=== PATIENT | male | born 1980 | race Caucasian/White ===

== ENCOUNTER 2017-06-22 15:44 | Emergency (ER) | payer OTHER ==
[~2017-06-22] VITALS: Ht 167.6 cm; Wt 81.7 kg
[2017-06-22] MEDS ORDERED: PROTONIX40 M1 PO (15:58)
[2017-06-22] MEDS ORDERED: CHANTIX1 MG PO (15:59)
[2017-06-22 16:12] LABS: URINE BILIRUBIN NEGATIVE (Negative); URINE BLOOD NEGATIVE (Negative); URINE CLARITY CLEAR; URINE COLOR YELLOW; URINE GLUCOSE-RANDOM NEGATIVE (Negative); URINE KETONES NEGATIVE (Negative); URINE LEUKOCYTES-REFLEX NEGATIVE (Negative); URINE NITRITE-REFLEX NEGATIVE (Negative); URINE PROTEIN NEGATIVE (Negative); URINE UROBILINOGEN 0.2 E.U./dl (0.2-1.0)
[2017-06-22 16:16] LABS: ABSOLUTE BASOPHILS 0.1 thou/uL (0.0-0.2); ABSOLUTE EOSINOPHILS 0.2 thou/uL (0.0-0.7); ABSOLUTE MONOCYTES 0.7 thou/uL (0.0-1.2); ABSOLUTE NEUTROPHILS 5.6 thou/uL (1.6-8.1); BASOPHILS 0.6 %; EOSINOPHILS 2.1 %; HEMATOCRIT 40.4 % (42.0-52.0); HEMOGLOBIN 13.5 gm/dL (14.0-18.0); LYMPHOCYTES 31.4 %; MCH 28.5 pg (26.0-34.0); MCHC 33.4 g/dL (28.0-37.0); MCV 85.3 fL (80.0-100.0); MONOCYTES 7.7 %; MPV 7.9 fl. (7.2-11.1); NUCLEATED RBCS 0 /100WBC; PLATELET COUNT* 348 thou/uL (150-400); POLYS 58.2 %; RBC 4.74 mil/uL (4.50-6.00); RDW-CV 14.6 % (10.5-14.5); WBC 9.5 thou/uL (4.0-11.0)
[2017-06-22 16:23] LABS: CALCIUM 9.1 mg/dL (8.5-10.1); CREATININE 0.6 mg/dL (0.6-1.3)
[2017-06-22 16:24] LABS: POTASSIUM 4.2 mmol/L (3.5-5.1)
[2017-06-22 16:27] LABS: ALBUMIN 3.7 g/dL (3.4-5.0); TOTAL BILIRUBIN 0.3 mg/dL (<0.1-1.0); TOTAL PROTEIN 8.1 g/dL (6.4-8.2)
[2017-06-22] MEDS ORDERED: NORCO 5-325 TA1 EACH PO (18:27)
[2017-06-22 19:23] VITALS: BP 122/83
== END 2017-06-22 19:25 | disposition home or self-care (01) ==
LOC: M.ERS 15:44
PROVIDERS: Nurse Practitioner Family
DX: R10.31 Right lower quadrant pain (principal); K62.5 Hemorrhage of anus and rectum; K21.9 Gastro-esophageal reflux disease without esophagitis; F17.210 Nicotine dependence, cigarettes, uncomplicated; Z90.49 Acquired absence of other specified parts of digestive tract; Z98.890 Other specified postprocedural states; Z91.013 Allergy to seafood

== ENCOUNTER 2017-06-26 06:15 | Emergency (ER) | payer OTHER ==
[~2017-06-26] VITALS: Ht 167.6 cm; Wt 81.7 kg
[~2017-06-26 06:15] MED LIST: CHANTIX1 MG PO; NORCO 5-325 TA1 EACH PO; PROTONIX40 M1 PO
[2017-06-26 06:45] LABS: ABSOLUTE EOSINOPHILS 0.2 thou/uL (0.0-0.7); ABSOLUTE LYMPHOCYTES 2.3 thou/uL (0.8-5.3); ABSOLUTE MONOCYTES 0.5 thou/uL (0.0-1.2); ABSOLUTE NEUTROPHILS 4.9 thou/uL (1.6-8.1); BASOPHILS 0.6 %; EOSINOPHILS 2.8 %; HEMATOCRIT 39.9 % (42.0-52.0); HEMOGLOBIN 13.4 gm/dL (14.0-18.0); LYMPHOCYTES 28.8 %; MCH 28.6 pg (26.0-34.0); MCHC 33.5 g/dL (28.0-37.0); MCV 85.1 fL (80.0-100.0); MONOCYTES 6.4 %; MPV 7.8 fl. (7.2-11.1); NUCLEATED RBCS 0 /100WBC; PLATELET COUNT* 353 thou/uL (150-400); POLYS 61.4 %; RBC 4.69 mil/uL (4.50-6.00); RDW-CV 14.3 % (10.5-14.5)
[2017-06-26 06:47] LABS: URINE BILIRUBIN NEGATIVE (Negative); URINE BLOOD NEGATIVE (Negative); URINE CLARITY CLEAR; URINE COLOR YELLOW; URINE GLUCOSE-RANDOM NEGATIVE (Negative); URINE KETONES NEGATIVE (Negative); URINE LEUKOCYTES-REFLEX NEGATIVE (Negative); URINE NITRITE-REFLEX NEGATIVE (Negative); URINE PROTEIN NEGATIVE (Negative); URINE UROBILINOGEN 0.2 E.U./dl (0.2-1.0)
[2017-06-26 06:50] LABS: AMP/METHAMP Negative (Negative); BARBITURATES Negative (Negative); BENZODIAZEPINES Negative (Negative); COCAINE Negative (Negative); METHADONE Negative (Negative); OPIATES POSITIVE (Negative); PCP Negative (Negative); THC POSITIVE (Negative)
[2017-06-26 06:52] LABS: CALCIUM 8.9 mg/dL (8.5-10.1); CREATININE 0.9 mg/dL (0.6-1.3); POTASSIUM 3.1 mmol/L (3.5-5.1)
[2017-06-26 06:57] LABS: ALBUMIN 3.6 g/dL (3.4-5.0); TOTAL BILIRUBIN 0.2 mg/dL (<0.1-1.0); TOTAL PROTEIN 7.8 g/dL (6.4-8.2)
[2017-06-26] MEDS ORDERED: HYDROCODONE-AP1 EAC6 PO (07:07)
[2017-06-26 07:39] VITALS: BP 132/90
== END 2017-06-26 07:41 | disposition home or self-care (01) ==
LOC: M.ERS 06:15
PROVIDERS: Emergency Medicine
DX: K59.00 Constipation, unspecified (principal); K21.9 Gastro-esophageal reflux disease without esophagitis; Z98.890 Other specified postprocedural states; Z91.013 Allergy to seafood

== ENCOUNTER 2017-07-30 17:40 | Emergency (ER) | payer OTHER ==
[~2017-07-30] VITALS: Ht 167.6 cm; Wt 83.5 kg
[~2017-07-30 17:40] MED LIST changes: +HYDROCODONE-AP1 EAC6 PO
[2017-07-30] MEDS ORDERED: LEXAPRO20 MG PO (17:52)
[2017-07-30 18:20] LABS: ABSOLUTE BASOPHILS 0.1 thou/uL (0.0-0.2); ABSOLUTE EOSINOPHILS 0.2 thou/uL (0.0-0.7); ABSOLUTE LYMPHOCYTES 2.9 thou/uL (0.8-5.3); ABSOLUTE MONOCYTES 0.7 thou/uL (0.0-1.2); ABSOLUTE NEUTROPHILS 6.6 thou/uL (1.6-8.1); BASOPHILS 0.8 %; EOSINOPHILS 1.6 %; HEMATOCRIT 41.6 % (42.0-52.0); HEMOGLOBIN 13.9 gm/dL (14.0-18.0); LYMPHOCYTES 27.9 %; MCH 28.2 pg (26.0-34.0); MCHC 33.4 g/dL (28.0-37.0); MCV 84.5 fL (80.0-100.0); MONOCYTES 6.8 %; MPV 7.7 fl. (7.2-11.1); NUCLEATED RBCS 0 /100WBC; PLATELET COUNT* 400 thou/uL (150-400); POLYS 62.9 %; RBC 4.92 mil/uL (4.50-6.00); RDW-CV 14.2 % (10.5-14.5); WBC 10.5 thou/uL (4.0-11.0)
[2017-07-30 18:23] LABS: URINE BILIRUBIN NEGATIVE (Negative); URINE BLOOD NEGATIVE (Negative); URINE CLARITY CLEAR; URINE COLOR YELLOW; URINE GLUCOSE-RANDOM NEGATIVE (Negative); URINE KETONES NEGATIVE (Negative); URINE LEUKOCYTES-REFLEX NEGATIVE (Negative); URINE NITRITE-REFLEX NEGATIVE (Negative); URINE PROTEIN NEGATIVE (Negative); URINE UROBILINOGEN 0.2 E.U./dl (0.2-1.0)
[2017-07-30 18:29] LABS: ANION GAP 8 mmol/L (7-16); BUN 11 mg/dL (7-18); CALCIUM 8.8 mg/dL (8.5-10.1); CHLORIDE 102 mmol/L (98-107); CO2 27 mmol/L (21-32); CREATININE 0.7 mg/dL (0.6-1.3); GLUCOSE 86 mg/dL (70-99); POTASSIUM 3.8 mmol/L (3.5-5.1); SODIUM 137 mmol/L (136-145)
[2017-07-30 18:36] LABS: ALKALINE PHOSPHATASE 94 U/L (46-116); LIPASE 100 U/L (73-393); SGOT 27 U/L (15-37); SGPT 43 U/L (30-65); TOTAL BILIRUBIN 0.3 mg/dL (<0.1-1.0); TOTAL PROTEIN 8.7 g/dL (6.4-8.2); TROPONIN-I LEVEL <0.06 ng/mL (<0.06)
[2017-07-30] MEDS ORDERED: MEDROLDOSEPACK PO (22:08)
[2017-07-30] MEDS ORDERED: NORCO 5-325 TA1 EACH PO (22:08)
[2017-07-30] MEDS ORDERED: PHENERGAN 25 MG25 M1 PO (22:08)
[2017-07-30 22:17] VITALS: BP 123/84
--- NOTE | 2017-07-31 17:16 | EKG ---
[place] [address] ELECTROCARDIOGRAM REPORT Name: RHINA HERNANDEZ Room: [facility]#: [id number] Admission: 07/30/17 Attend Phys: Discharge: 07/30/17 Date of : 78 Report #: [id number] THIS REPORT FOR: //name// [facility] ED Test Date: 2017-07-30 Test Time: 18:23:23 Pat Name: RHINA BRENNANHERNANDEZ Department: Room: Gender: Trailer Driver: Flori SHERWOOD : 1980 Requested By: Willard Stone Order Number: [id number] MD: Bogdan Whyte Measurements Intervals [place] Rate: 75 P: 39 MI: 121 QRS: 11 QRSD: 97 T: 21 QT: 375 QTc: 419 Interpretive Statements Sinus rhythm No previous ECG available for comparison Electronically Signed On 07-31-2017 17:15:49 [employer] by Bogdan Whyte [email or web address] <ELECTRONICALLY SIGNED> By: Bogdan Whyte MD, [facility] 07/31/17 1715 1823 1823 Bogdan Whyte MD, FACC /EPI
== END 2017-07-30 22:19 | disposition home or self-care (01) ==
LOC: M.ERS 17:40
PROVIDERS: Emergency Medicine Emergency Medical Services
DX: R10.84 Generalized abdominal pain (principal); K21.9 Gastro-esophageal reflux disease without esophagitis; F32.9 Major depressive disorder, single episode, unspecified; K51.90 Ulcerative colitis, unspecified, without complications; Z90.49 Acquired absence of other specified parts of digestive tract; Z91.013 Allergy to seafood

== ENCOUNTER 2017-08-01 18:42 | Emergency (ER) | payer OTHER ==
[~2017-08-01] VITALS: Ht 167.6 cm; Wt 81.7 kg
[~2017-08-01 18:42] MED LIST changes: +LEXAPRO20 MG PO; +MEDROLDOSEPACK PO; +PHENERGAN 25 MG25 M1 PO
[2017-08-01 19:13] LABS: ABSOLUTE BASOPHILS 0.1 thou/uL (0.0-0.2); ABSOLUTE EOSINOPHILS 0.1 thou/uL (0.0-0.7); ABSOLUTE LYMPHOCYTES 3.2 thou/uL (0.8-5.3); ABSOLUTE MONOCYTES 0.5 thou/uL (0.0-1.2); ABSOLUTE NEUTROPHILS 7.6 thou/uL (1.6-8.1); BASOPHILS 0.8 %; EOSINOPHILS 1.1 %; HEMATOCRIT 39.1 % (42.0-52.0); HEMOGLOBIN 13.2 gm/dL (14.0-18.0); MCH 28.9 pg (26.0-34.0); MCHC 33.6 g/dL (28.0-37.0); MCV 85.9 fL (80.0-100.0); MONOCYTES 4.4 %; MPV 7.4 fl. (7.2-11.1); NUCLEATED RBCS 0 /100WBC; PLATELET COUNT* 369 thou/uL (150-400); POLYS 65.7 %; RBC 4.56 mil/uL (4.50-6.00); RDW-CV 14.3 % (10.5-14.5); WBC 11.6 thou/uL (4.0-11.0)
[2017-08-01 19:21] LABS: CALCIUM 8.3 mg/dL (8.5-10.1); CREATININE 0.9 mg/dL (0.6-1.3); POTASSIUM 3.3 mmol/L (3.5-5.1)
[2017-08-01 19:23] LABS: URINE BILIRUBIN NEGATIVE (Negative); URINE BLOOD 3+ (Negative); URINE CLARITY CLEAR; URINE COLOR YELLOW; URINE GLUCOSE-RANDOM NEGATIVE (Negative); URINE KETONES NEGATIVE (Negative); URINE LEUKOCYTES-REFLEX NEGATIVE (Negative); URINE NITRITE-REFLEX NEGATIVE (Negative); URINE PROTEIN NEGATIVE (Negative); URINE UROBILINOGEN 0.2 E.U./dl (0.2-1.0)
[2017-08-01 19:25] LABS: ALBUMIN 3.8 g/dL (3.4-5.0); TOTAL BILIRUBIN 0.2 mg/dL (<0.1-1.0); TOTAL PROTEIN 7.7 g/dL (6.4-8.2)
[2017-08-01 19:37] LABS: BACTERIA-REFLEX None Seen /HPF (None Seen); CASTS None Seen /LPF (None Seen); CRYSTALS None Seen /LPF (None Seen); MUCUS 0-3 Light strn/LPF (None Seen); SQUAMOUS 4-10 Moderate /LPF (0-3); URINE RBC >20 Many /HPF (0-2); URINE WBC-REFLEX None Seen /HPF (0-5)
[2017-08-01 21:06] VITALS: BP 145/73
== END 2017-08-01 21:08 | disposition home or self-care (01) ==
LOC: M.ERS 18:42
PROVIDERS: Nurse Practitioner Family
DX: R10.84 Generalized abdominal pain (principal); F32.9 Major depressive disorder, single episode, unspecified; K21.9 Gastro-esophageal reflux disease without esophagitis; Z91.013 Allergy to seafood; Z88.6 Allergy status to analgesic agent; Z90.49 Acquired absence of other specified parts of digestive tract; Z98.890 Other specified postprocedural states

== ENCOUNTER 2017-08-04 10:38 | Emergency (ER) | payer OTHER ==
[~2017-08-04] VITALS: Ht 167.6 cm; Wt 81.7 kg
[2017-08-04 10:52] LABS: URINE BILIRUBIN NEGATIVE (Negative); URINE BLOOD NEGATIVE (Negative); URINE CLARITY CLEAR; URINE COLOR YELLOW; URINE GLUCOSE-RANDOM NEGATIVE (Negative); URINE KETONES NEGATIVE (Negative); URINE LEUKOCYTES-REFLEX NEGATIVE (Negative); URINE NITRITE-REFLEX NEGATIVE (Negative); URINE PROTEIN NEGATIVE (Negative); URINE UROBILINOGEN 0.2 E.U./dl (0.2-1.0)
[2017-08-04 11:07] LABS: AMP/METHAMP Negative (Negative); BARBITURATES Negative (Negative); BENZODIAZEPINES Negative (Negative); COCAINE Negative (Negative); METHADONE Negative (Negative); OPIATES Negative (Negative); PCP Negative (Negative); THC POSITIVE (Negative)
[2017-08-04 11:17] LABS: ABSOLUTE BASOPHILS 0.1 thou/uL (0.0-0.2); ABSOLUTE EOSINOPHILS 0.1 thou/uL (0.0-0.7); ABSOLUTE LYMPHOCYTES 3.6 thou/uL (0.8-5.3); ABSOLUTE MONOCYTES 0.8 thou/uL (0.0-1.2); ABSOLUTE NEUTROPHILS 11.7 thou/uL (1.6-8.1); BASOPHILS 0.5 %; EOSINOPHILS 0.4 %; HEMATOCRIT 38.8 % (42.0-52.0); LYMPHOCYTES 22.1 %; MCH 28.4 pg (26.0-34.0); MCHC 33.5 g/dL (28.0-37.0); MCV 84.9 fL (80.0-100.0); MONOCYTES 4.8 %; MPV 7.7 fl. (7.2-11.1); NUCLEATED RBCS 0 /100WBC; PLATELET COUNT* 408 thou/uL (150-400); POLYS 72.2 %; RBC 4.57 mil/uL (4.50-6.00); RDW-CV 14.3 % (10.5-14.5); WBC 16.2 thou/uL (4.0-11.0)
[2017-08-04 11:24] LABS: CALCIUM 8.9 mg/dL (8.5-10.1); CREATININE 0.8 mg/dL (0.6-1.3); POTASSIUM 3.5 mmol/L (3.5-5.1)
[2017-08-04 11:29] LABS: ALBUMIN 3.9 g/dL (3.4-5.0); TOTAL BILIRUBIN 0.2 mg/dL (<0.1-1.0)
[2017-08-04 13:21] VITALS: BP 119/73
== END 2017-08-04 13:23 | disposition home or self-care (01) ==
LOC: M.ERS 10:38
PROVIDERS: Physician Assistant
DX: R10.84 Generalized abdominal pain (principal); K21.9 Gastro-esophageal reflux disease without esophagitis; F32.9 Major depressive disorder, single episode, unspecified; K51.90 Ulcerative colitis, unspecified, without complications; Z91.013 Allergy to seafood; Z90.49 Acquired absence of other specified parts of digestive tract

== ENCOUNTER 2017-08-25 16:02 | Emergency (ER) | payer OTHER ==
[~2017-08-25] VITALS: Ht 167.6 cm; Wt 81.7 kg
[2017-08-25 16:45] LABS: URINE BILIRUBIN NEGATIVE (Negative); URINE BLOOD NEGATIVE (Negative); URINE CLARITY CLEAR; URINE COLOR STRAW; URINE GLUCOSE-RANDOM NEGATIVE (Negative); URINE KETONES NEGATIVE (Negative); URINE LEUKOCYTES-REFLEX NEGATIVE (Negative); URINE NITRITE-REFLEX NEGATIVE (Negative); URINE PROTEIN NEGATIVE (Negative); URINE SPECIFIC GRAVITY <= 1.005 (1.005-1.030); URINE UROBILINOGEN 0.2 E.U./dl (0.2-1.0)
[2017-08-25 16:47] LABS: ABSOLUTE BASOPHILS 0.1 thou/uL (0.0-0.2); ABSOLUTE EOSINOPHILS 0.2 thou/uL (0.0-0.7); ABSOLUTE LYMPHOCYTES 2.7 thou/uL (0.8-5.3); ABSOLUTE MONOCYTES 0.4 thou/uL (0.0-1.2); ABSOLUTE NEUTROPHILS 6.1 thou/uL (1.6-8.1); BASOPHILS 0.5 %; EOSINOPHILS 1.6 %; HEMATOCRIT 38.6 % (42.0-52.0); HEMOGLOBIN 13.2 gm/dL (14.0-18.0); LYMPHOCYTES 28.8 %; MCHC 34.3 g/dL (28.0-37.0); MCV 84.4 fL (80.0-100.0); MONOCYTES 4.6 %; MPV 7.9 fl. (7.2-11.1); NUCLEATED RBCS 0 /100WBC; PLATELET COUNT* 356 thou/uL (150-400); POLYS 64.5 %; RBC 4.57 mil/uL (4.50-6.00); RDW-CV 14.8 % (10.5-14.5); WBC 9.5 thou/uL (4.0-11.0)
[2017-08-25 16:53] LABS: AMP/METHAMP Negative (Negative); BARBITURATES Negative (Negative); BENZODIAZEPINES Negative (Negative); COCAINE Negative (Negative); METHADONE Negative (Negative); OPIATES Negative (Negative); PCP Negative (Negative); THC POSITIVE (Negative)
[2017-08-25 16:53] LABS: CALCIUM 8.8 mg/dL (8.5-10.1); POTASSIUM 3.3 mmol/L (3.5-5.1)
[2017-08-25 16:57] LABS: TOTAL BILIRUBIN 0.3 mg/dL (<0.1-1.0); TOTAL PROTEIN 8.4 g/dL (6.4-8.2)
[2017-08-25] MEDS ORDERED: BENTYL 20 MG TA20 M1 PO (18:00)
[2017-08-25] MEDS ORDERED: ACETAMINOPHEN-1 EAC1 PO (18:27)
[2017-08-25 18:38] VITALS: BP 120/75
== END 2017-08-25 18:39 | disposition home or self-care (01) ==
LOC: M.ERS 16:02
PROVIDERS: Nurse Practitioner Family
DX: R10.31 Right lower quadrant pain (principal); K21.9 Gastro-esophageal reflux disease without esophagitis; F32.9 Major depressive disorder, single episode, unspecified; K51.90 Ulcerative colitis, unspecified, without complications; F17.200 Nicotine dependence, unspecified, uncomplicated; Z90.49 Acquired absence of other specified parts of digestive tract; Z91.013 Allergy to seafood